=== PATIENT | male | born 1980 | race Caucasian/White ===

== ENCOUNTER 2019-02-02 07:54 | Emergency (ER) | payer BC ==
[~2019-02-02] VITALS: Ht 167.6 cm; Wt 52.2 kg
[2019-02-02 08:05] VITALS: BP_SYST 140
--- NOTE | 2019-02-02 08:10 | NUR ---
Patient to ER bed 1 to gown for evaluation. Side rails up. Report given to Chika ALANIS.
--- NOTE | 2019-02-02 08:13 | NUR ---
PATIENT BROUGHT IN BY MOTHER BECAUSE SHE WAS WORRIED ABOUT HIM. PATIENT STATES HE STOPPED TAKING HIS MEDS AND EATING SINCE YESTERDAY. WHEN ASKED WHAT BRINGS HIM TO ER, PATIENT STATES, "I DONT KNOW WHAT TO SAY." PATIENT STATES HE FEELS "DEPRESSED ABOUT FUTURE." WHEN ASKED IF HE HAS ANY THOUGHS OF SUICIDE PATIENT STATES, "I GUESS." WHEN ASKED IF HE HAS PLAN, PATIENT STATES HIS PLAN WAS TO "NOT DO ANYTHING ANYMORE." PATIENT STATES HE IS "WAITING TO ." PATIENT SAID HE JUST SNAPPED YESTERDAY. PATIENT STATES HE HAD EPISODE OF SUICIDE IN PAST AFTER STARTING KLONOPIN. PATIENT ALERT AND ORIENTED X4.
--- NOTE | 2019-02-02 08:26 | NUR ---
ER Dr. Velasco at bedside examining patient.
--- NOTE | 2019-02-02 08:38 | NUR ---
PATIENT GETTING LABS DRAWN AT BEDSIDE.
--- NOTE | 2019-02-02 08:46 | NUR ---
MOTHER AT BEDSIDE.
[2019-02-02 08:53] LABS: BASOPHILS # (AUTO) 0.2 K/uL (0.0-0.2); BASOPHILS % (AUTO) 0.9 % (0.0-2.0); EOSINOPHILS # (AUTO) 0.1 K/uL (0.0-0.4); EOSINOPHILS % (AUTO) 0.3 % (0.0-4.0); HEMATOCRIT 43.7 % (36-54); HEMOGLOBIN 14.6 g/dL (14.0-18.0); LYMPHOCYTES # (AUTO) 2.2 K/uL (1.0-5.5); LYMPHOCYTES % (AUTO) 10.5 % (20.5-51.5); MEAN CORPUSCULAR HEMOGLOBIN 31 pg (27-31); MEAN CORPUSCULAR HGB CONC 34 % (32-36); MEAN CORPUSCULAR VOLUME 94 fL (79.0-98.0); MONOCYTES # (AUTO) 0.8 K/uL (0.0-1.0); MONOCYTES % (AUTO) 3.7 % (1.7-9.3); NEUTROPHILS # (AUTO) 17.4 K/uL (1.8-7.7); NEUTROPHILS % (AUTO) 84.6 % (40.0-70.0); PLATELET COUNT (AUTO) 351 K/uL (130-430); RED BLOOD CELL COUNT(AUTO) 4.66 MIL/uL (4.2-6.2); RED CELL DISTRIBUTION WIDTH 13.6 % (9.0-15.0); WHITE BLOOD COUNT (AUTO) 20.5 K/uL (4.8-10.8)
[2019-02-02 09:02] LABS: ANION GAP 16 (5-15); CALCIUM 8.7 mg/dL (8.4-11.0); CHLORIDE 103 mmol/L (98-107); GFR AFRICAN AMERICAN 79 mL/min (>90); GLUCOSE 99 mg/dL (70-99); POTASSIUM 3.3 mmol/L (3.5-5.1); SODIUM SERUM 142 mmol/L (136-145); UREA NITROGEN, BLOOD 15 mg/dL (8-21)
[2019-02-02 09:07] LABS: ALANINE AMINOTRANSFERASE 16 U/L (12-78); ALBUMIN 4.2 g/dL (3.4-4.8); ASPARTATE AMINOTRANSFERASE 19 U/L (10-37); TOTAL BILIRUBIN 0.8 mg/dL (0.0-1.0)
[2019-02-02 09:08] LABS: ALCOHOL, BLOOD < 3 mg/dL (<10)
[2019-02-02 09:17] LABS: BARBITURATE, URINE NEGATIVE (NEG <=200); BENZODIAZEPINE, URINE NEGATIVE (NEG <=150); METHAMPHETAMINES SCREEN,URINE NEGATIVE (NEG <=500); URINE AMPHETAMINE NEGATIVE (NEG <=500); URINE METHADONE NEGATIVE (NEG <=200)
[2019-02-02 09:18] LABS: CANNABINOID, URINE POSITIVE (NEG <=50); COCAINE, URINE NEGATIVE (NEG <=150); OPIATE, URINE NEGATIVE (NEG <=100); PHENCYCLIDINE SCREEN,URINE NEGATIVE (NEG <=25); UR TRICYCLIC ANTIDEPRESSANTS NEGATIVE (NEG <=300); URINE OXYCODONE SCREEN NEGATIVE (NEG <=100); URINE PROPOXYPHENE SCREEN NEGATIVE (NEG <=300)
--- NOTE | 2019-02-02 09:28 | NUR ---
ER Dr. SNYDER TALKING TO patient AND MOTHER.
--- NOTE | 2019-02-02 09:36 | NUR ---
Patient given written and verbal discharge instructions and verbalizes understanding. ER MD discussed with patient the results and treatment provided. Patient in stable condition. ID arm band removed. No Rx given. Patient educated on pain management and to follow up with PMD. Pain Scale 0. Opportunity for questions provided and answered. Medication side effect fact sheet provided.
[2019-02-02 09:43] VITALS: BP_SYST 138
== END 2019-02-02 09:36 | disposition home or self-care (01) ==
LOC: SED 07:54
DX: F32.9 Major depressive disorder, single episode, unspecified (principal)
CPT/HCPCS: 36415; 80053; 80307; 85025; 99283; G0482

== ENCOUNTER 2019-02-13 06:29 | Emergency (ER) | payer BC ==
[~2019-02-13] VITALS: Ht 154.9 cm; Wt 49.9 kg
[2019-02-13 06:39] VITALS: BP_SYST 134
[2019-02-13] MEDS ORDERED: ONDANSETRON HCL 4 MG/2 ML VIAL IVP ONE (06:45)
[2019-02-13] MEDS ORDERED: MORPHINE 2 MG/ML INJ. SYRINGE IVP ONE (06:45)
[2019-02-13] MEDS ORDERED: NACL 0.9% 1,000 ML IV ONE ×2 (06:45→10:45)
[2019-02-13 07:34] LABS: BASOPHILS # (AUTO) 0.2 K/uL (0.0-0.2); BASOPHILS % (AUTO) 1.4 % (0.0-2.0); EOSINOPHILS % (AUTO) 0.3 % (0.0-4.0); HEMATOCRIT 44.3 % (36-54); HEMOGLOBIN 15.1 g/dL (14.0-18.0); LYMPHOCYTES # (AUTO) 1.8 K/uL (1.0-5.5); LYMPHOCYTES % (AUTO) 12.8 % (20.5-51.5); MEAN CORPUSCULAR HEMOGLOBIN 31 pg (27-31); MEAN CORPUSCULAR HGB CONC 34 % (32-36); MEAN CORPUSCULAR VOLUME 92 fL (79.0-98.0); MONOCYTES # (AUTO) 0.7 K/uL (0.0-1.0); MONOCYTES % (AUTO) 5.1 % (1.7-9.3); NEUTROPHILS # (AUTO) 11.3 K/uL (1.8-7.7); NEUTROPHILS % (AUTO) 80.4 % (40.0-70.0); PLATELET COUNT (AUTO) 384 K/uL (130-430); RED BLOOD CELL COUNT(AUTO) 4.82 MIL/uL (4.2-6.2); RED CELL DISTRIBUTION WIDTH 13.3 % (9.0-15.0)
[2019-02-13 07:50] LABS: CREATININE 1.34 mg/dL (0.55-1.30)
[2019-02-13 07:54] LABS: INR 1.1 (0.80-1.20); PROTHROMBIN TIME 10.6 SECS (9.5-12.5)
[2019-02-13 08:06] LABS: ALBUMIN 4.5 g/dL (3.4-4.8); THYROID STIMULATING HORMONE 1.21 uIu/mL (0.36-3.74); TOTAL BILIRUBIN 1.2 mg/dL (0.0-1.0)
[2019-02-13] MEDS ORDERED: DIPHENHYDRAMINE INJ 50 MG/ML VIAL IVP ONE (08:30)
[2019-02-13] MEDS ORDERED: PROCHLORPERAZINE EDISYLATE 10 MG/2 ML VIAL IVP ONE (08:30)
[2019-02-13] MEDS ORDERED: POTASSIUM CHLORIDE 10 MEQ TAB.PRT.SR PO ONE (10:15)
[2019-02-13 10:50] VITALS: BP_SYST 124
[2019-02-14] MEDS ORDERED: TRAM-350 PO (10:28)
[2019-02-14] MEDS ORDERED: LEVO75TA7 PO (10:28)
[2019-02-14] MEDS ORDERED: CIPR-211 PO (10:28)
[2019-02-14] MEDS ORDERED: ONDA4TAB5 PO (10:28)
[2019-02-14] MEDS ORDERED: PEN250 PO (10:28)
[2019-02-14] MEDS ORDERED: PROP20TA7 PO (10:28)
== END 2019-02-13 10:50 | disposition home or self-care (01) ==
LOC: SED 06:29
DX: K50.90 Crohn's disease, unspecified, without complications (principal); E07.9 Disorder of thyroid, unspecified; R07.89 Other chest pain; R11.10 Vomiting, unspecified; R19.7 Diarrhea, unspecified; R05 Cough
CPT/HCPCS: 36415; 71045; 74176; 80053; 83605; 83690; 83880; 84443; 84484; 85025; 85610; 85730; 87040; 93005; 96361; 96374; 96375; 99284; J0780; J1200; J2270; J2405; J7030

== ENCOUNTER 2019-02-14 04:58 | Inpatient (IN) | payer BC ==
[~2019-02-14] VITALS: Ht 167.6 cm; Wt 52.7 kg
[2019-02-14 05:03] VITALS: BP_SYST 116
--- NOTE | 2019-02-14 05:04 | NUR ---
Patient to ER bed 7 to gown for evaluation. Side rails up. Report given to Ha ALANIS.
--- NOTE | 2019-02-14 05:12 | NUR ---
Pt complains vomiting x 6 since 8pm last night. Pt was seen yesterday for abdominal pain and vomiting. Per mother, pt took an anti-nauseous medication that was prescribed earlier and it helped. Then patient took a pain medication that was prescribed but had little effect. Pt states he does not have as much abdominal pain right now and is more concerned of the vomiting. Pt has not been able to keep anything down after 8pm. Pt denies fever and diarrhea. No other injuries/complaints per patient or noted.
--- NOTE | 2019-02-14 05:25 | NUR ---
ER Dr. Valentino at bedside examining patient.
[2019-02-14] MEDS ORDERED: NACL 0.9% 1,000 ML IV ONE (05:35)
[2019-02-14] MEDS ORDERED: METOCLOPRAMIDE HCL 10 MG/2 ML VIAL IVP ONE (05:45)
[2019-02-14] MEDS ORDERED: DIPHENHYDRAMINE INJ 50 MG/ML VIAL IVP ONE ×2 (05:45→08:00)
--- NOTE | 2019-02-14 05:55 | NUR ---
Patient went to radiology in stable condition.
--- NOTE | 2019-02-14 05:55 | NUR ---
Marla morris in ED - 02/14/19 at 0556 by [email or web address] Patient went to CT in stable condition.
--- NOTE | 2019-02-14 06:00 | NUR ---
patient returned from radiology in stable condition.
[2019-02-14 06:05] LABS: BASOPHILS # (AUTO) 0.1 K/uL (0.0-0.2); BASOPHILS % (AUTO) 0.5 % (0.0-2.0); HEMATOCRIT 36.9 % (36-54); HEMOGLOBIN 12.8 g/dL (14.0-18.0); LYMPHOCYTES # (AUTO) 1.3 K/uL (1.0-5.5); MEAN CORPUSCULAR HEMOGLOBIN 32 pg (27-31); MEAN CORPUSCULAR HGB CONC 35 % (32-36); MEAN CORPUSCULAR VOLUME 91 fL (79.0-98.0); MONOCYTES # (AUTO) 0.4 K/uL (0.0-1.0); MONOCYTES % (AUTO) 3.3 % (1.7-9.3); NEUTROPHILS # (AUTO) 10.2 K/uL (1.8-7.7); NEUTROPHILS % (AUTO) 85.2 % (40.0-70.0); PLATELET COUNT (AUTO) 313 K/uL (130-430); RED BLOOD CELL COUNT(AUTO) 4.04 MIL/uL (4.2-6.2); RED CELL DISTRIBUTION WIDTH 13.2 % (9.0-15.0)
[2019-02-14 06:17] LABS: CALCIUM 8.1 mg/dL (8.4-11.0); CREATININE 0.92 mg/dL (0.55-1.30); POTASSIUM 3.4 mmol/L (3.5-5.1)
[2019-02-14 06:22] LABS: ALBUMIN 3.6 g/dL (3.4-4.8)
--- NOTE | 2019-02-14 06:28 | NUR ---
ER Dr. Valentino at bedside explaining results to patient.
[2019-02-14] MEDS ORDERED: methylPREDNISolone SOD SUCC/PF 62.5 MG/ML VIAL IVP ONE (06:30)
--- NOTE | 2019-02-14 07:07 | NUR ---
unable to reconcile medications. Pt is unable to recall names of medication and dosages. Advised mother to bring list of medications from home.
--- NOTE | 2019-02-14 07:25 | NUR ---
Report given to ZEKE [place]. All care endorsed.
--- NOTE | 2019-02-14 07:26 | NUR ---
Pt is resting in bed, c/o still feeling nausated. aware.
[2019-02-14] MEDS ORDERED: ONDANSETRON HCL 4 MG/2 ML VIAL IVP ONE (07:30)
--- NOTE | 2019-02-14 07:31 | NUR ---
ZOfran 4mg IV given to pt per MD order. Pt c/o mid abd 12/07 pain, Dr. Valentino notified.
[2019-02-14 07:35] LABS: BILIRUBIN,URINE 1+ (NEGATIVE); BLOOD, URINE NEGATIVE (NEGATIVE); CLARITY/URINE CLEAR (CLEAR); COLOR,URINE YELLOW (YELLOW); GLUCOSE,URINE NEGATIVE (NEGATIVE); KETONES,URINE 3+ (NEGATIVE); LEUKOCYTE ESTERASE ,URINE NEGATIVE (NEGATIVE); NITRITE, URINE NEGATIVE (NEGATIVE); PROTEIN URINE NEGATIVE (NEGATIVE); UROBILINOGEN,URINE 0.2 (0.2-1.0)
[2019-02-14 07:37] LABS: BACTERIA,URINE FEW /HPF (None Seen); RBC,URINE 0-3 /HPF (0-3); WBC,URINE 0-3 /HPF (0-3)
[2019-02-14 07:38] LABS: MUCUS,URINE 1+ /LPF (None Seen)
[2019-02-14] MEDS ORDERED: MORPHINE 4 MG/ML INJ. SYRINGE IVP ONE ×2 (08:00)
--- NOTE | 2019-02-14 08:50 | NUR ---
Patient will be admitted to care of Dr. callahan. Admitted to med surge unit. Will go to room 116A. Belongings list completed. Summary report printed. Report will be given at bedsidepascale Caldwell RN
--- NOTE | 2019-02-14 09:02 | NUR ---
Pt transferred to 116 A, no acute distress noted.
--- NOTE | 2019-02-14 09:18 | NUR ---
Admission: Received from ER on a gurrney with the diagnosis of Crohns Exacerbation. Oriented x4, ambulatory with steady gait. Oriented to room, Call light within reach. Denies pain, no diarrhea.
[2019-02-14 09:20] VITALS: BP_SYST 117
[2019-02-14] MEDS: D5NS 1,000 ML IV SCH ×2 (09:37→20:47)
--- NOTE | 2019-02-14 09:45 | NUR ---
DR PERALTA AT BEDSIDE TALKING TO PATIENT.
[2019-02-14] MEDS ORDERED: PROP20TA7 PO (10:28)
[2019-02-14] MEDS ORDERED: ONDA4TAB5 PO (10:28)
[2019-02-14] MEDS ORDERED: CIPR-211 PO (10:28)
[2019-02-14] MEDS ORDERED: PEN250 PO (10:28)
[2019-02-14] MEDS ORDERED: TRAM-350 PO (10:28)
[2019-02-14] MEDS ORDERED: LEVO75TA7 PO (10:28)
[2019-02-14] MEDS ORDERED: MESALAMINE 400 MG CAPSULE.DR PO ONE (10:45)
[2019-02-14 11:35] VITALS: BP_SYST 116
[2019-02-14 15:24] VITALS: BP_SYST 112
--- NOTE | 2019-02-14 18:17 | NUR ---
PAGED DR OLSEN AND DR PERALTA FOR ABDOMINAL PAIN. PT HAS NO PAIN MEDICATION ON BOARD. PT'S MOM NOW UPSET.
[2019-02-14] MEDS ORDERED: MORPHINE 2 MG/ML INJ. SYRINGE IVP PRN (18:45)
[2019-02-14] MEDS ORDERED: MORPHINE 2 MG/ML INJ. SYRINGE ONE (19:05)
--- NOTE | 2019-02-14 19:40 | NUR ---
INITIAL NOTE RECEIVED PATIENT AWAKE, ALERT AND ORIENTED. NO SOB NOTED. DENIES ANY PAIN OR N/V AT THIS TIME. IVF INFUSING. SKIN INTACT AND NO PERIPHERAL EDEMA NOTED. CARE AND MONITORING WILL BE PROVIDED PER PROTOCOL. CALL LIGHT WITHIN REACH. BED ALARM OFF PER PATIENT'S REQUEST. BED AT LOWEST POSITION AT ALL TIMES. NEEDS ATTENDED. KEPT WARM AND COMFORTABLE.
[2019-02-14 20:00] VITALS: BP_SYST 122
[2019-02-14] MEDS: MESALAMINE 400 MG CAPSULE.DR PO SCH (20:43)
--- NOTE | 2019-02-14 20:43 | NUR ---
RN NOTE DUE MED GIVEN, TOLERATED WELL. COMPLAIN OF MILD NAUSEA, NO VOMITING. WILL PAGE MD FOR MEDICATION. NEEDS ATTENDED.
--- NOTE | 2019-02-14 23:00 | NUR ---
RN NOTE PATIENT AWAKE, WATCHING TV. NO COMPLAINTS AT THIS TIME. NEEDS ATTENDED. REPOSITIONS SELF.
--- NOTE | 2019-02-14 23:08 | NUR ---
PAGED I PAGED DR. OLSEN [phone] I SPOKE WITH LISA ELLIS THIS IS THE FIRST CALL
--- NOTE | 2019-02-14 23:35 | NUR ---
PAGED I PAGED DR. OLSEN @ [phone] I SPOKE WITH LISA ELLIS THIS IS THE SECOND CALL
--- NOTE | 2019-02-14 23:58 | NUR ---
PAGED I PAGED DR. FULTON @ [phone] I SPOKE WITH LISA ELLIS THIS IS THE THIRD CALL
[2019-02-15 00:10] VITALS: BP_SYST 119
--- NOTE | 2019-02-15 01:00 | NUR ---
RN NOTE SLEEPING AT THIS TIME. NO SOB OR GRIMACING NOTED. IVF INFUSING.
--- NOTE | 2019-02-15 03:00 | NUR ---
PAIN MED PATIENT AWAKE. COMPLAIN OF ABDOMINAL PAIN AND MILD NAUSEA. NO VOMITING. MEDICATED FOR PAIN REQUESTED. PAGED DR. OLSEN 4X BUT NO CALL BACK. PATIENT AWARE. COMFORT MEASURES PROVIDED. KEPT WARM AND COMFORTABLE.
--- NOTE | 2019-02-15 04:50 | NUR ---
STOOL SPECIMEN SENT PATIENT AMBULATED TO THE BATHROOM AND BACK TO BED. HAD A LIQUID/MUCOID STOOL AND SENT TO LAB. PATIENT HAS NO OTHER COMPLAINTS. KEPT WARM AND COMFORTABLE.
--- NOTE | 2019-02-15 05:38 | NUR ---
NAUSEA MED DR. OLSEN CALLED BACK AND REQUESTED FOR A NAUSEA/VOMITING PRN MEDICATION. ORDER WAS MADE AND CARRIED OUT. MEDICATED PATIENT FOR NAUSEA. WILL CONTINUE TO MONITOR.
[2019-02-15] MEDS: ONDANSETRON HCL 4 MG/2 ML VIAL IVP PRN ×2 (05:53→11:47)
--- NOTE | 2019-02-15 06:20 | NUR ---
END NOTE AFEBRILE. VS STABLE. NO COMPLAIN OF SOB THROUGHOUT THE NIGHT. MEDICATED FOR ABDOMINAL PAIN TWICE ALL NIGHT. BEEN COMPLAINING OF NAUSEA SINCE LAST NIGHT. DR OLSEN CALLED BACK AROUND 0530 AND WAS MEDICATED. NO VOMITING. STOOL SENT TO THE LAB. IVF INFUSING. AMBULATES WITH STEADY GAIT. AM LABS TODAY. CARE AND MONITORING PROVIDED PER PROTOCOL. CALL LIGHT WITHIN REACH. BED ALARM OFF PER PATIENT'S REQUEST. BED AT LOWEST POSITION AT ALL TIMES. NEEDS ATTENDED. KEPT WARM AND COMFORTABLE.
[2019-02-15 06:31] LABS: BASOPHILS # (AUTO) 0.1 K/uL (0.0-0.2); BASOPHILS % (AUTO) 0.5 % (0.0-2.0); EOSINOPHILS % (AUTO) 0.1 % (0.0-4.0); HEMATOCRIT 37.9 % (36-54); LYMPHOCYTES # (AUTO) 3.1 K/uL (1.0-5.5); LYMPHOCYTES % (AUTO) 18.5 % (20.5-51.5); MEAN CORPUSCULAR HEMOGLOBIN 32 pg (27-31); MEAN CORPUSCULAR HGB CONC 34 % (32-36); MEAN CORPUSCULAR VOLUME 93 fL (79.0-98.0); MONOCYTES # (AUTO) 1.5 K/uL (0.0-1.0); MONOCYTES % (AUTO) 8.8 % (1.7-9.3); NEUTROPHILS % (AUTO) 72.1 % (40.0-70.0); PLATELET COUNT (AUTO) 297 K/uL (130-430); RED BLOOD CELL COUNT(AUTO) 4.09 MIL/uL (4.2-6.2); RED CELL DISTRIBUTION WIDTH 13.3 % (9.0-15.0)
[2019-02-15 07:05] LABS: ALBUMIN 3.2 g/dL (3.4-4.8); CALCIUM 8.1 mg/dL (8.4-11.0); CREATININE 1.06 mg/dL (0.55-1.30); TOTAL BILIRUBIN 0.6 mg/dL (0.0-1.0)
[2019-02-15 07:19] LABS: WHITE BLOOD COUNT (AUTO) 16.6 K/uL (4.8-10.8)
[2019-02-15 07:20] LABS: POTASSIUM 2.9 mmol/L (3.5-5.1)
[2019-02-15] MEDS ORDERED: POTASSIUM CHLORIDE 20 MEQ TAB.PRT.SR PO ONE (07:45)
[2019-02-15 08:00] VITALS: BP_SYST 126
--- NOTE | 2019-02-15 08:00 | NUR ---
ASSUMPTION OF CARE: RECEIVED PT A/A/OX4, VSS, AFEBRILE, BREATH SOUNDS ARE CLEAR, BREATHING UNLABORED, NO C/O PAIN OR DISCOMFORT, IV SITE INTACT, PATENT, NO REDNESS OR SWELLING, ORIENTED TO UNIT, CALL LIGHT WITHIN REACH, FAMILY AT BEDSIDE, WILL CON'T TO MONITOR AND ASSESS.
[2019-02-15] MEDS: MESALAMINE 400 MG CAPSULE.DR PO SCH ×2 (08:56→22:58)
[2019-02-15] MEDS: D5NS 1,000 ML IV SCH ×2 (08:57→21:20)
--- NOTE | 2019-02-15 09:00 | NUR ---
[employer]NALYTICS HEAD: MORNING MEDS GIVEN, PER ORDERED BY Bakari, TOLERATED WELL, WILL CON'T TO MONITOR AND ASSESS.
[2019-02-15] MEDS ORDERED: POTASSIUM CHLORIDE 20 MEQ TAB.PRT.SR ONE (09:06)
[2019-02-15] MEDS ORDERED: PANTOPRAZOLE SODIUM 40 MG/VIAL (PROTONIX) IVP ONE (11:00)
[2019-02-15 11:28] VITALS: BP_SYST 123
[2019-02-15] MEDS ORDERED: LEVOTHYROXINE SODIUM 0.112 MG TABLET PO ONE (11:30)
--- NOTE | 2019-02-15 12:00 | NUR ---
NURSES NOTES: PT REMAINS STABLE WITH NO CHANGES NOTED AT THIS TIME, HAS SMALL BM WITH SAMPLE COLLECTED AND SENT TO LAB, REORIENTED TO UNIT, CALL LIGHT PLACED WITHIN REACH, WILL CON'T TO MONITOR AND ASSESS.
--- NOTE | 2019-02-15 15:00 | NUR ---
NURSES NOTES: PT REMAINS STABLE, RESTING IN POSITION OF COMFORT, FAMILY MEMBERS AT BEDSIDE, CALL LIGHT PLACED WITHIN REACH, WILL CON'T TO MONITOR AND ASSESS.
[2019-02-15 16:06] VITALS: BP_SYST 129
--- NOTE | 2019-02-15 18:00 | NUR ---
END OF SHIFT: PT SITTING UP IN BED, FAMILY REMAINS AT BEDSIDE, NO REQUEST MADE AT THIS TIME, NO C/O PAIN, NO S/S OF DISTRESS, WILL ENDORSE TO VOCATIONAL NURSE LVN NURSE.
--- NOTE | 2019-02-15 19:25 | NUR ---
OPENING NOTES Pt and endorsement received from day shift nurse. Pt is AAOx4, lying in bed. Pt on IVF with D5NS at 75ml/hr and infusing well on left forearm G20. No complains of pain or discomfort at this time. No signs of acute distress or SOB noted. Encouraged to use call light when needed. Safety precautions in place with 2 side rails up, wheels locked and bed in lowest level. Call light with pt. Will continue to monitor.
[2019-02-15 21:18] VITALS: BP_SYST 119
--- NOTE | 2019-02-15 23:35 | NUR ---
ROUNDS Pt is resting in bed with both eyes closed, with visible chest rise and fall with non-labored breathing noted. No complains of pain and no signs of acute distress noted. IVF infusing well. Safety precautions in place and call light with pt. Will continue to monitor.
[2019-02-16 00:49] VITALS: BP_SYST 119
--- NOTE | 2019-02-16 03:11 | NUR ---
ROUNDS Pt is resting in bed with both eyes closed, with visible chest rise and fall with non-labored breathing noted. Pt is easily arousable. No signs of acute distress noted. IVF infusing well. No needs at this time. Safety precautions in place and call light with pt. Will continue to monitor.
--- NOTE | 2019-02-16 06:36 | NUR ---
CLOSING NOTES Pt is resting in bed with both eyes closed, with visible chest rise and fall with non-labored breathing noted. Pt is easily arousable. IVF infusing well. No complains of pain or discomfort at this time. No signs of acute distress or SOB noted. All needs attended throughout the shift. Safety precautions maintained with 2 side rails up, wheels locked, and bed in lowest level. Call light with pt. Will endorse to day shift nurse.
[2019-02-16] MEDS ORDERED: LEVOTHYROXINE SODIUM 0.112 MG TABLET PO SCH (07:00)
--- NOTE | 2019-02-16 07:37 | NUR ---
RN INITIAL NOTES RECEIVED PATIENT IN BED ALERT AWAKE AND VERBAL ,PATIENT NO DISTRESS AT THIS TIME ,ABLE TO ANSWER QUESTIONS , RESP EVEN AND UNLABORED , WILL CONT CARE AND MONITOR N/V AND ABDOMINAL PAIN .
[2019-02-16 07:59] LABS: BASOPHILS # (AUTO) 0.1 K/uL (0.0-0.2); BASOPHILS % (AUTO) 0.8 % (0.0-2.0); EOSINOPHILS % (AUTO) 0.2 % (0.0-4.0); HEMOGLOBIN 13.7 g/dL (14.0-18.0); LYMPHOCYTES % (AUTO) 18.4 % (20.5-51.5); MEAN CORPUSCULAR HEMOGLOBIN 32 pg (27-31); MEAN CORPUSCULAR HGB CONC 34 % (32-36); MEAN CORPUSCULAR VOLUME 93 fL (79.0-98.0); MONOCYTES # (AUTO) 0.8 K/uL (0.0-1.0); MONOCYTES % (AUTO) 7.3 % (1.7-9.3); NEUTROPHILS % (AUTO) 73.3 % (40.0-70.0); PLATELET COUNT (AUTO) 335 K/uL (130-430); RED BLOOD CELL COUNT(AUTO) 4.32 MIL/uL (4.2-6.2); RED CELL DISTRIBUTION WIDTH 13.6 % (9.0-15.0); WHITE BLOOD COUNT (AUTO) 10.9 K/uL (4.8-10.8)
[2019-02-16 08:25] LABS: ALBUMIN 3.6 g/dL (3.4-4.8); CALCIUM 8.1 mg/dL (8.4-11.0); CREATININE 0.97 mg/dL (0.55-1.30); POTASSIUM 3.6 mmol/L (3.5-5.1); TOTAL BILIRUBIN 0.7 mg/dL (0.0-1.0)
[2019-02-16] MEDS ORDERED: PANTOPRAZOLE SODIUM 40 MG/VIAL (PROTONIX) IVP SCH (09:00)
[2019-02-16] MEDS: MESALAMINE 400 MG CAPSULE.DR PO SCH (10:32)
--- NOTE | 2019-02-16 10:34 | NUR ---
GI DR /PCP VISIT PATIENT SEEN BY GI DR PERALTA DISCUSSED PATIENT CONDITION AND ORDERED FOR SOFT DIET PATIENT IS AWARE , ALSO SEEN BY DR KELLY IF PATIENT TOLERATES ADVANCED DIET WILL DC PATIENT LATER , CHARGE NURSE MADE AWARE
[2019-02-16 10:41] VITALS: BP_SYST 123
--- NOTE | 2019-02-16 12:30 | NUR ---
TOLERATING SOFT DIET PATIENT TOLERATED WITH SOFT DIET AND NO COMPLAIN OF ABDOMINAL PAIN ATTENDED
[2019-02-16 12:40] VITALS: BP_SYST 129
[2019-02-16 13:55] VITALS: BP_SYST 123
--- NOTE | 2019-02-16 14:51 | NUR ---
DISCHARGE PLAN DR OLSEN PAGED AND WILL COME TO DC THE PATIENT PATIENT AND MOM INFORMED
--- NOTE | 2019-02-16 16:03 | NUR ---
D/C Patient Patient given medication reconciliation form and D/C instructions will cont home meds till consumed. patient and mom stated they have appt to their pcp Exit Care provided. Patient verbalized understanding. MD discussed with patient the results and treatment provided. Ambulatory with steady gait for discharge to home. Patient in stable condition, ID band removed. IV catheter removed, intact and dressing applied, no active bleeding. Rx of given. Patient educated on pain management. All belongings sent with patient.
[2019-02-16 16:40] VITALS: BP_SYST 125
== END 2019-02-16 16:03 | disposition home or self-care (01) | DRG 387 ==
LOC: SED 04:58 → SMU 07:50
PROVIDERS: ADMIT Internal Medicine Hospice and Palliative Medicine; ATTEND Internal Medicine Hospice and Palliative Medicine
DX: K50.90 Crohn's disease, unspecified, without complications (principal); E89.0 Postprocedural hypothyroidism; Z80.0 Family history of malignant neoplasm of digestive organs; Z92.3 Personal history of irradiation
CPT/HCPCS: 36415; 74021; 80053; 81000-TC; 83690-TC; 85025; 87045-TC; 87046; 87177; 87230-TC; 89055; 96374; 96375; 96376; 99285; C9113; J1200; J2270; J2405; J2765; J2930; J7042